=== PATIENT | male | born 1985 | race Hispanic/Latino ===

== ENCOUNTER 2017-01-25 22:52 | Emergency (ER) | payer SELFPAY ==
[2017-01-25] MEDS ORDERED: Acetaminophen/Codeine 30-300mg Tablet ONE (23:21)
[2017-01-25] MEDS ORDERED: Ibuprofen 800 MG TAB ONE (23:21)
--- NOTE | 2017-01-25 23:31 | RAD ---
THREE VIEWS OF THE LEFT HAND 01/25/17 COMPARISON: None. HISTORY: Left wrist pain following a fall. FINDINGS: Questioned soft tissue swelling lateral to the distal left radius. No widening of the scapholunate i nterval. No displaced fracture or dislocation seen. IMPRESSION: Probable distal lateral soft tissue swelling. No displaced fracture or dislocation seen. If symptoms persists, followup imaging in 7-10 days with dedicated scaphoid views advised. POS: [facility]
[2017-01-25] MEDS ORDERED: Ondansetron ODT 4 MG TAB ONE (23:37)
== END 2017-01-26 00:17 | disposition home or self-care (01) ==
LOC: NAV ERS 22:52
DX: S63.502A Unspecified sprain of left wrist, initial encounter (principal); J45.909 Unspecified asthma, uncomplicated; I10 Essential (primary) hypertension; M10.9 Gout, unspecified; W10.9XXA Fall (on) (from) unspecified stairs and steps, initial encounter
CPT/HCPCS: 96372; J2270; Q0162